=== PATIENT | male | born 1960 | race Caucasian/White ===

== ENCOUNTER 2019-09-19 14:16 | Emergency (ER) | payer OTHER, SELFPAY ==
--- NOTE | ~2019-09-19 | XR_ITS ---
EXAMINATION: XR chest 2V DATE: 09/19/2019 15:16 INDICATION: Mid chest pain. TECHNIQUE: Frontal and lateral views of the chest were obtained. COMPARISON: Chest 2 views 12/09/2006 FINDINGS: The chest demonstrates clear lungs without pneumonia, pleural effusion, or pneumothorax. Th e heart size is normal. IMPRESSION: 1. No acute cardiopulmonary disease. Reviewed, dictated and finalized at location A.
--- NOTE | 2019-09-19 14:38 | ECG_ITS ---
Measurements Intervals [place] Rate: 70 P: 61 FL: 180 QRS: 1 QRSD: 105 T: 48 QT: 360 QTc: 389 Interpretive Statements SINUS RHYTHM INCOMPLETE RIGHT BUNDLE BRANCH BLOCK DELAYED PRECORDIAL R/S TRANSITION BASELINE ARTIFACT- I, II, III BORDERLINE ECG Electronically Signed On 09-19-2019 15:44:56 CDT by Junaid Jesus D.O.
[2019-09-19 14:42] VITALS: BP 142/102; PULSE 68; PULSE 71; RESP 19; TEMP 36.9; O2SAT 97
[2019-09-19 15:17] LABS: Basophils Percent Auto 0.7 % (0.2-1.2); Eosinophils Absolute Auto 0.1 K/mm3 (0-0.3); Eosinophils Percent Auto 1.2 % (0-4.4); Hematocrit 44.4 % (42.0-52.0); Hemoglobin 15.1 g/dL (14.0-18.0); Immature Granulocyte Absolute 0.01 K/mm3 (0.00-0.031); Immature Granulocyte Percent A 0.2 % (0-0.5); Lymphocytes Absolute Auto 1.83 K/mm3 (0.9-3.2); Lymphocytes Percent Auto 31.7 % (18.3-44.2); Mean Corpuscular Hemoglobin 29.4 pg (26-34); Mean Corpuscular Volume 86.4 fl (80-100); Mean Platelet Volume 8.9 fl (7.4-10.4); Monocytes Absolute Auto 0.5 K/mm3 (0.1-0.6); Monocytes Percent Auto 8.3 % (2.6-8.5); Neutrophils Absolute Auto 3.3 K/mm3 (1.3-6.7); Neutrophils Percent Auto 57.9 % (45.5-73.1); Platelet Count Result 236 k/mm3 (150-375); Red Blood Count 5.14 M/mm3 (4.6-6.20); Red Cell Distribution Width 13.4 % (11.5-14.5); White Blood Count 5.8 K/mm3 (4.5-10.0)
[2019-09-19] MEDS: ASPIRIN 81 MG CHEWABLE TABLET 324 MG PO (15:21)
[2019-09-19 15:28] LABS: Blood Urea Nitrogen 15 mg/dL (9-20); Carbon Dioxide 25 mmol/L (22-30); Chloride 106 mmol/L (98-107); Estimated CRCL calculation 77 ml/min; Estimated Glomerular Filt Rate > 60; Glucose 89 mg/dL (75-110); Potassium 3.9 mmol/L (3.4-5.0); Sodium 138 mmol/L (137-145)
[2019-09-19 15:40] LABS: Troponin I < 0.012 ng/mL (0.000-0.034)
[2019-09-19 16:03] LABS: Prothrombin Time 13.2 Seconds (11.1-14.7)
[2019-09-19 16:04] LABS: Partial Thromboplastin Time 34.4 SECONDS (22.3-36.8)
--- NOTE | 2019-09-19 16:20 | ED.GENADULT ---
HPI - General Adult General Chief complaint: Chest Pain Stated complaint: chest pain Time Seen by Provider: 09/19/19 15:32 Source: patient History of Present Illness HPI narrative: Patient is a 59 y/o male complaining midsternal chest pain since yesterday. He states that he was exercising with a bicycle yesterday and developed a sharp, midsternal chest pain afterwards. He rates his pain as 6/10, but it only lasted a few seconds. Today, he has some pressure and burning sensation in his midsternal area. There is no radiation. He has some dizziness and nausea, but vomiting or sweating. He has been feeling heart palpitation for several months. Related Data Allergies Allergy/AdvReac Type Severity Reaction Status Date / Time cat dander Allergy Unknown Sneezing Verified 07/08/19 11:13 house dust Allergy Unknown Sneezing Verified 07/08/19 11:13 pollen extracts Allergy Unknown Sneezing Verified 07/08/19 11:13 potassium chloride Allergy Unknown Sneezing Verified 07/08/19 11:13 Review of Systems Constitutional: Constitutional: Denies chills, Denies fever(s), Denies headache(s) and Denies weakness Eyes: Eyes: Denies blurry vision ENT: Denies headache(s) and Denies neck pain Cardiovascular: Cardiovascular: Reports chest pain and Denies dyspnea Comments: +palpitation Respiratory: Respiratory: Denies cough and Denies dyspnea Gastrointestinal: Gastrointestinal: Denies abdominal pain, Denies diarrhea, Reports nausea and Denies vomiting Genitourinary: Genitourinary: Denies hematuria and Denies dysuria Musculoskeletal: Musculoskeletal: Denies back pain and Denies neck pain Neurologic: Denies headache(s) and Denies weakness [facility] Past Medical History Medical History Bone spur (~2007) Torn meniscus (~2009) Family History Family History Mother Cerebrovascular accident Carcinoma of colon Family history of lupus erythematosus Patient's mother is , Onset Age: 72 Social History Social History Smoking status: Never smoker Alcohol intake: current Gender identity (if verbalized by the patient): Male Exam Const: General: no acute distress and well developed Orientation/consciousness: oriented to person, oriented to place, oriented to time and patient oriented x3 HENMT: Head: normocephalic Ears: external ears normal General nose exam: Normal external nose present Eyes: General: appearance normal, both eyes and all related structures Conjunctivae: conjunctivae normal Neck: Neck: normal visual inspection and full ROM Chest: Chest palpation & inspection: normal inspection of the chest and no tenderness Resp: Effort & Inspection: normal respiratory effort Auscultation: clear to auscultation bilaterally Cardio: Rate: regular rate Rhythm: regular rhythm GI: GI Palp: No abdominal tenderness and Yes Soft to palpation Skin: General skin exam: normal color and turgor normal Neuro: General: oriented to person, oriented to place, oriented to time and patient oriented x3 Cognition (Neuro): normal cognition Extrem: General: normal to inspection, full ROM and no pedal edema Psych: Appearance: grossly normal Mental Status: mental status grossly normal Affect: normal affect Course Vital Signs Vital signs: Vital Signs Temperature 36.9 C 09/19/19 14:42 Pulse Rate 68 09/19/19 14:42 Respiratory Rate 19 09/19/19 14:42 Blood Pressure 142/102 H 09/19/19 14:42 Pulse Oximetry 97 09/19/19 14:42 Temperature 36.4 C 09/19/19 20:39 Pulse Rate 77 09/19/19 20:39 Respiratory Rate 20 09/19/19 20:39 Blood Pressure 130/80 09/19/19 20:39 Pulse Oximetry 98 09/19/19 20:39 Medical Decision Making Vital Signs Vital Signs: Vital Signs Temperature 36.9 C 09/19/19 14:42 Pulse Rate 68 09/19/19 14:42 Respiratory Rate 19 0
[2019-09-19 16:42] VITALS: BP 131/94; PULSE 64; RESP 17; O2SAT 98
[2019-09-19 17:42] VITALS: BP 122/81; PULSE 64; RESP 15; O2SAT 99
[2019-09-19 18:14] LABS: Troponin I < 0.012 ng/mL (0.000-0.034)
--- NOTE | 2019-09-19 19:19 | PC.NURSE ---
assumed care of pt from Jareth Yun.
[2019-09-19 19:20] LABS: D Dimer 0.27 ug/mL (<0.48)
[2019-09-19 20:39] VITALS: BP 130/80; PULSE 77; RESP 20; TEMP 36.4; O2SAT 98
== END 2019-09-19 20:41 | disposition home or self-care (01) ==
PROVIDERS: Emergency Medicine; Emergency Provider Emergency Medicine; PCP Family Medicine
DX: R07.9 Chest pain, unspecified (principal)
CPT/HCPCS: 36415; 71046; 80048; 84443; 84484; 85025; 85380; 85610; 85730; 93005; 99284; A9270

== ENCOUNTER 2021-03-22 11:04 | Outpatient (CLI) | payer OTHER, SELFPAY ==
--- NOTE | 2021-03-28 12:21 | WPDHOLTEREM ---
Holter/Event Monitor Holter/Event Monitor Date of procedure: 03/22/21 Holter/Event Procedure: 24 Hr Holter Monitor Indications: Palpitations Conclusion: 1. 24 hour holter monitor on 03/22/21. 2. Underlying rhythm is sinus rhythm. HR range 51-122 bpm; average HR 74 bpm. 3. There are 16 premature supraventricular complexes and 1 atrial triplet. No supraventricular tachycardia. 4. There are 39 premature ventricular complexes. No ventricular tachycardia. 5. No sinoatrial or atrioventricular blocks. No significant pauses greater than 2 seconds. 6. Patient reports symptoms of flutter which demonstrate sinus rhythm, HR range 63-77 bpm.
== END 2021-03-22 11:05 | disposition home or self-care (01) ==
PROVIDERS: PCP Family Medicine; Visit Provider Physician Assistant
DX: R00.2 Palpitations (principal)
CPT/HCPCS: 93225; 93226

== ENCOUNTER → 2022-04-11 10:15 | Outpatient (CLI) | payer BC, SELFPAY ==
--- NOTE | ~2022-04-11 | US_ITS ---
Testicular ultrasound with doppler. Indication: Right testicular pain. Technique: Real-time sonography the scrotum was performed. Color flow Doppler and Doppler spectral an alysis were performed. Findings: The testes are homogeneous in echotexture bilaterally. There is no evidence of an intrates ticular mass. The right testis measures 4.8 x 2.5 x 3.7 cm and the left 4.6 x 2.4 x 3.7 cm. There is color-flow seen to both testes. Arterial and venous spectral waveforms are seen in both testes. There is no sonographic evidence of torsion. The head of the epididymis is visualized bilaterally and is within normal limits. Small bilateral hydroceles noted. Impression: Small bilateral hydroceles. No other significant abnormality. Reviewed, dictated and finalized at [facility]. ASSISTANT Impression: Small bilateral hydroceles. No other significant abnormality.
== END ==
PROVIDERS: PCP Family Medicine; Visit Provider Family Medicine
DX: N50.811 Right testicular pain (principal); N43.3 Hydrocele, unspecified
CPT/HCPCS: 76870; 93976

== ENCOUNTER 2022-05-23 01:23 | Day surgery (SDC) | payer BC, SELFPAY ==
[2022-05-16 11:03] VITALS: BMI 25.7
[2022-05-23 11:59] VITALS: BP 137/85; PULSE 88; RESP 20; TEMP 36.6; O2SAT 98
--- NOTE | 2022-05-23 12:07 | PM.HPGS ---
History of Present Illness History of Present Illness Consent: Risks, benefits, and alternatives have been discussed and questions answered. Patient agrees to proceed with procedure. Chief complaint: family hx of colon ca Narrative: Amador Stauffer is a 61 year old male Presents for screening colonoscopy. Patient's current weight appetite and bowel movements are normal. Patient denies abdominal pain. He has had no bleeding. Family history is significant that his mother had colon cancer. Patient presents today for screening exam. Last exam was 5 years ago. Review of Systems Review of Systems: Review of systems noncontributory. [facility] Past Medical History Medical History (Updated 05/23/22 @ 12:09 by Matthew Copeland MD) Bone spur (~2007) Torn meniscus (~2009) Family History Family History Mother Cerebrovascular accident Carcinoma of colon Family history of lupus erythematosus Patient's mother is , Onset Age: 72 Social History Social History Smoking status: Never smoker Alcohol intake: current Drinks per week: 3 Alcohol use details: socially Substance use: never Substance use type: does not use Lack of Transportation: No Lack of Food: Never True Current Housing: I Have Housing Concerned About Future Housing: No Difficulty Paying Gas/Electric Bills: No Difficulty Paying for Meds: No Currently Unemployed: No Education: Decline to Answer Difficulty w/ Childcare or Family Care: No Living arrangements: with family Additional living arrangements comments: Occupation/Education: occupation Gender identity (if verbalized by the patient): Male Sexual Orientation (if Verbalized by the Patient): Straight or Heterosexual Spiritual care concerns: No Agree to blood products: Yes Meds Home Medications and Allergies Home Medications Medication Instructions Recorded Confirmed Type sodium,potassium,mag sulfates 17.5 See Rx Instructions PO .COMPLEX 01/08/22 05/23/22 Rx gram-3.13 gram-1.6 gram oral soln #354 mL (Suprep Bowel Prep Kit) sildenafil 50 mg tablet (Viagra) 50 mg PO DAILY PRN sexual activity 02/26/22 05/23/22 History cholecalciferol (vitamin D3) 10 10 mcg PO DAILY 05/16/22 05/23/22 History mcg (400 unit) capsule (Vitamin D3) multivitamin 1 tablet PO DAILY 05/16/22 05/23/22 History omega-3 fatty acids 1,000 mg PO DAILY 05/16/22 05/23/22 History Allergies Allergy/AdvReac Type Severity Reaction Status Date / Time cat dander Allergy Unknown Sneezing Verified 05/23/22 12:02 house dust Allergy Unknown Sneezing Verified 05/23/22 12:02 pollen extracts Allergy Unknown Sneezing Verified 05/23/22 12:02 Vital Signs Vital Signs - 24 hr 05/23/22 11:59 Temperature 97.8 F Pulse Rate 88 Respiratory Rate 20 Blood Pressure 137/85 Pulse Oximetry 98 Oxygen Delivery Room Air Exam Narrative: Physical exam reveals patient to be alert. Vital signs stable. HEENT exam is unremarkable. Patient is anicteric. Lungs are clear to auscultation and percussion. Heart is without murmur or extra sounds. Abdomen bowel sounds present soft nontender with no organomegaly. Digital external rectal exam is normal. Assessment and Plan Assessment and plan (1) Family history of colon cancer in mother: Code(s): Z80.0 - Family history of malignant neoplasm of digestive organs Status: Acute Assessment and Plan: Patient's mother has had colon cancer. Plan for surveillance colonoscopy now and consider this at 5 year intervals in the future.
[2022-05-23] MEDS: LACTATED RINGERS 1,000 ML 150 ML IV CONT (12:13)
--- NOTE | 2022-05-23 12:25 | WPDANESEPPF ---
Anes - Initial Pre Proc Eval Procedure: Operation Date: 05/23/22 15:00 Proposed Procedures p Screening Colonoscopy - Matthew Copeland MD Date/Time: 05/23/22 12:25 Surgeon: Matthew Copeland MD Pre Op Diagnosis: family hx of colon ca Patient Data Age: 61 Gender: M Height: 1.85 m Weight: 90 kg Last Vital Signs Temp 36.6 C 05/23/22 11:59 Pulse 88 05/23/22 11:59 Resp 20 05/23/22 11:59 BP 137/85 05/23/22 11:59 Pulse Ox 98 05/23/22 11:59 O2 Del Method Room Air 05/23/22 11:59 Allergies Allergy/AdvReac Type Severity Reaction Status Date / Time cat dander Allergy Unknown Sneezing Verified 05/23/22 12:02 house dust Allergy Unknown Sneezing Verified 05/23/22 12:02 pollen extracts Allergy Unknown Sneezing Verified 05/23/22 12:02 Home Medications Medication Instructions Recorded Confirmed Type sodium,potassium,mag sulfates 17.5 See Rx Instructions PO .COMPLEX 01/08/22 05/23/22 Rx gram-3.13 gram-1.6 gram oral soln #354 mL (Suprep Bowel Prep Kit) sildenafil 50 mg tablet (Viagra) 50 mg PO DAILY PRN sexual activity 02/26/22 05/23/22 History cholecalciferol (vitamin D3) 10 10 mcg PO DAILY 05/16/22 05/23/22 History mcg (400 unit) capsule (Vitamin D3) multivitamin 1 tablet PO DAILY 05/16/22 05/23/22 History omega-3 fatty acids 1,000 mg PO DAILY 05/16/22 05/23/22 History Patient hx anesthesia problems: none Family hx anesthesia problems: none Results Review: All pre-operative results and documents have been reviewed as part of the pre-operative evaluation. [facility] Past Medical History Medical History Bone spur (~2007) Torn meniscus (~2009) Surgical History Surgical History (Updated 05/23/22 @ 12:25 by Patricio Hickman MD) H/O sinus surgery Family History Family History Mother Cerebrovascular accident Carcinoma of colon Family history of lupus erythematosus Patient's mother is , Onset Age: 72 Social History Social History Smoking status: Never smoker Alcohol intake: current Drinks per week: 3 Alcohol use details: socially Substance use: never Substance use type: does not use Lack of Transportation: No Lack of Food: Never True Current Housing: I Have Housing Concerned About Future Housing: No Difficulty Paying Gas/Electric Bills: No Difficulty Paying for Meds: No Currently Unemployed: No Education: Decline to Answer Difficulty w/ Childcare or Family Care: No Living arrangements: with family Additional living arrangements comments: Occupation/Education: occupation Gender identity (if verbalized by the patient): Male Sexual Orientation (if Verbalized by the Patient): Straight or Heterosexual Spiritual care concerns: No Agree to blood products: Yes Anes - Eval Final PreProcedure Day of Procedure 05/23/22 12:25 Patient weight: overweight Heart: regular rate and rhythm Lungs: clear to auscultation Airway: Mallampati scale class II Neurological: alert and oriented Last oral intake: >/= 8 hours ASA classification: II Emergent: no Anesthetic plan: proceed Anesthesia type and monitoring: general GIVS and standard monitoring Results Review: All pre-operative results and documents have been reviewed as part of the pre-operative evaluation. Informed Consent: The patient's anesthetic plan and its attendant risks and benefits were discussed with the patient/family/POA. Questions were solicited and answers provided to the satisfaction of the patient/family/POA.
[2022-05-23] MEDS: SIMETHICONE ORAL SUSPENSION 20 MG/0.3 ML 30 ML BOTTLE 0.6 ML IRRIGATION (12:47)
[2022-05-23 13:03] VITALS: BP 117/78; PULSE 80; RESP 19; TEMP 36.6; O2SAT 98
[2022-05-23 13:13] VITALS: BP 123/80; PULSE 75; RESP 17; TEMP 36.6; O2SAT 100
[2022-05-23 13:23] VITALS: BP 136/93; PULSE 78; RESP 18; TEMP 36.6; O2SAT 100
== END 2022-05-23 13:28 | disposition home or self-care (01) ==
PROVIDERS: PCP Family Medicine; Visit Provider Internal Medicine Gastroenterology
PROC: 0DJD8ZZ Inspection of Lower Intestinal Tract, Via Natural or Artificial Opening Endoscopic (ICD-10-PCS; CPT 45378; principal; 2022-05-23 15:00)
DX: Z12.11 Encounter for screening for malignant neoplasm of colon (principal); K64.8 Other hemorrhoids; Z80.0 Family history of malignant neoplasm of digestive organs
CPT/HCPCS: 45378; J2704; J7120

== ENCOUNTER 2024-06-17 09:42 | Emergency (ER) | payer OTHER, SELFPAY ==
[2024-06-17] VITALS (13 sets, daily range): BP systolic 125–150; BP diastolic 82–99; PULSE 62–78; RESP 12–20; TEMP 36.3–37.1; O2SAT 97–100
--- NOTE | ~2024-06-17 | XR_ITS ---
EXAMINATION: XR chest 2V DATE: 06/17/2024 10:22 INDICATION: Weakness TECHNIQUE: PA and lateral views of the chest were obtained. COMPARISON: Chest radiograph dated 09/19/2019 FINDINGS: Mild linear discoid atelectasis at the bilateral lung bases. No other airspace opacities, pulmonary e kaylan, pleural effusion or pneumothorax. The cardiomediastinal silhouette is normal. Visualized bones and soft tissues are unremarkable. IMPRESSION: 1. Mild discoid atelectasis at the bilateral lung bases. Reviewed, dictated and finalized at location B.
--- NOTE | 2024-06-17 09:52 | ECG_ITS ---
Test Date: 2024-06-17 09:58:03 Measurements Intervals [place] Rate: 68 P: 69 [place]: 189 QRS: 7 QRSD: 101 T: 56 QT: 377 QTc: 402 Interpretive Statements SINUS RHYTHM INCOMPLETE RIGHT BUNDLE BRANCH BLOCK BORDERLINE ECG No previous ECG available for comparison Electronically Signed On 06-17-2024 10:35:12 CDT by Junaid Jesus D.O.
--- OUTSIDE RECORDS SUMMARY | 2024-06-17 10:06 | XMS_ITS | Continuity of Care Document ---
Author Organization [facility] Address [address] [facility] [address] [facility] [address] [place] [address] Phone Care Team Providers Care Mba Internship Name Role Phone Galen Horvath MD Unavailable Unavailable Procedures Procedure Date Post-op Follow-up Visit Visual Field Examination(s) Advance Directives Directive Yes / No Effective Date File Name No Information Encounters Encounter Description Practice Location Reason(s) For Visit Diagnoses Date Provider Providers Copied on Encounter [facility], [address] [place] [address] [facility] [address], [place], [place], [id number], tel:[phone] [facility] No Information [address] Alexandru Aaron. [facility] [place], [place], [id number], [place]. tel:[phone] [facility], [address] [place] [address] [address], [place], [place], [id number], tel:[phone] [facility] No Information [address]. [address] [place], [place] [address]ate [facility] [address], [place], [address], [place]. tel:[phone] Referring Provider: Lyly Estrella, [address] [place], [address]. tel:[phone] Family History Family Member Type Diagnosis Age At Onset No Information Payers Payer name Insurance type Covered republican ID Authoriza tion(s) No Information Social History Type Description Quantity Date Captured Comments Sex Male Smoking Status No Information Chief Complaint And Reason For Visit No Information Reason For Referral Reason For Referral No Information History Of Present Illness Encounter Date Complaint History Of Prese nt Illness No Information Functional Status Date Functional Assessmen t No Information Instructions Date Instruction Additional Infor mation No Information Assessments Type Assessment Date No Information Patient Care Teams Name Effective Dates (start - stop) Status Members No Information
--- OUTSIDE RECORDS SUMMARY | 2024-06-17 10:06 | XMS_ITS | Encounter Summary ---
Author Organization [facility] Address [address] [facility] [place] [address] Care Team Providers Care Anesthesiologist Physician Name Role Phone Kait Owusu MD Primary Care Provider [phone] Encounter Details Date Type Department Care Team (Late st Contact Info) Description 02/15/2019 Lab Requisition [facility] DermPath Lab [address] [facility] [place] [id number] Rina Elizondo MD [address] [facility] [address] DEPT OF DERMATOLOGY [place], [place] [id number] Social History Tobacco Use Types Packs/Day Years Used Date Smoking Tobacco: Never Assessed Sex and Gender Information Value Date Recorded Sex Assigned at Not on file Gender Identity Not on file Sexual Orientation Not on file documented as of this encounter Plan of Treatment Not on file documented as of this encounter Procedures Procedure Name Priority Date/Time Associated Diagnosis Comments DERMPATH SLIDE CONSULT Routine 02/15/2019 12:00 AM HYPOID GEAR GENERATOR documented in this encounter Results * DERMPATH SLIDE CONSULT (02/15/2019 12:00 AM HYPOID GEAR GENERATOR) Case Report Dermatopathology Report Case: [id number] Authorizing Provider: Rina Elizondo MD Collected: 02/15/2019 12:00 AM Ordering Location: [facility] DermPath Lab Received: 02/15/2019 08:04 AM Pathologist: Talia Medellin MD Specimen: Slide(s), Left upper abdomen, [id number]# [id number] 6:07 PM [facility] DERMATOPATHOLOGY [facility]ORAT[facility] Final Diagnosis Specimen A. 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 Compound melanocytic proliferation. All slides returned. Appointment. Date: 02/21/2019. Any additional sections, special stains or immunohistochemical stains performed by our laboratory will be kept here on file. 6:07 PM [facility] Microscopic Description Specimen A. Slide(s), Left upper abdomen, OSC# [id number]: This is a compound nevus. There is architectural disorder characterized by a lentiginous proliferation of melanocytes between irregular nevus nests of cells along the dermal-epidermal junction. There is underlying lamellar fibroplasia of the papillary dermis. The intradermal component is bland in appearance and matures with depth. Provided immunostains are reviewed. The melanocytes are highlighted by Melan-A with red and brown chromogens. HMB-45 shows absence of staining in intradermal melanocytes, and Mib-1 fails to highlight proliferating melanocytes in the dermis. p16 shows a mosaic pattern of staining in the lesional melanocytes. (Compound Gilson's Nevus or Compound Dysplastic Nevus) This lesion is not present at the sampled margin of the specimen. There is a perifollicular lymphohistiocytic infiltrate. 6:07 PM [facility] Disclaimer An external and internal positive and negative controls are appropriate for the histochemical, immunohistochemical and immunofluorescence stain(s) in this case (if any), except where stated explicitly. The performance characteristics of the stain(s) cited in this report were developed and its performance characteristic determined by the Dermatopathology Laboratory at [facility], directed by Dr. Guilherme Medellin. These tests need not be, and therefore are not, approved by the [place] Food and Drug Administration. The tests are used for clinical purposes. Billing Codes Specimen Charges Stain Charges 04379 1 9 6:07 PM [facility]PO[facility]ATOR DERMATOPATHOLOGY LABORATORY Embedded Images 9 6:07 PM HYPOID GEAR GENERATOR DERMATOPATHOLOGY LABORATORY Pathology/Cytolog y SLIDE / Unknown 02/15/2019 02/15/2019 8:04 AM HYPOID GEAR GENERATOR Rina Elizondo MD LAB - PATHOLOGY/CYTO LOGY ORDERABLES DERMATOPATHOLOGY LABORATORY [facility] - Department of Dermatology [address] [place] [address] 5th Floor Lab [address] [phone] documented in this encounter Visit Diagnoses Not on filedocumented in this encounter Care Teams Anesthesiologist Physician Relationship Specialty Start Date End Date Kait Owusu MD [address] [place] [id number] PCP - General 01/26/19 documented as of this encounter
--- OUTSIDE RECORDS SUMMARY | 2024-06-17 10:06 | XMS_ITS | Clinical Summary ---
Author Organization [facility] Address [address] [facility] [place] [address] Care Team Providers Care Termite Exterminator Helper Name Role Phone Kait Owusu MD Primary Care Provider [phone] Source Comments [facility],non-owned Affiliates and Associated Physician Practices is amultiple site organization consisting of ambulatory clinics and hospital sitesin [place], [place], [place] and [place]. This disclosure is being madepursuant to the Care Everywhere program and may not contain all information available regarding this patient. Last updated 17.[facility] Allergies No known active allergies Medications Be aware that medications may not be up to date on this document. Always verify current medications with the patient. No known medications Active Problems No known active problems Immunizations Name Administration Dates Next Due INFLUENZA VACCINE, QUADR. (F LUZONE; FLULAVAL; FLUARIX; AFLURIA QUADRIVALENT; 6MO+), 0.5 ML (IIV4) 01/11/2017 Family History Medical History Relation Name Comments Asthma Neg Hx CVA Neg Hx Cancer - Breast Neg Hx Cancer - Other Neg Hx Cancer - Skin, Melanoma Neg Hx Cancer - Skin, Non Melanoma Neg Hx Eczema Neg Hx Hemophilia Neg Hx Psoriasis Neg Hx Social History Tobacco Use Types Packs/Day Years Used Date Smoking Tobacco: Never Smokeless Tobacco: Never Alcohol Use Standard Drinks/Week Comments Yes 0 (1 standard drink = 0.6 oz pur e alcohol) Sex and Gender Information Value Date Recorded Sex Assigned at Not on file Gender Identity Not on file Sexual Orientation Not on file Last Filed Vital Signs Vital Sign Reading Time Taken Comments Blood Pressure 127/88 03/14/2019 2:03 PM NATURAL GAS SHOTHOLE DRILLER Pulse 70 03/14/2019 2:03 PM NATURAL G[employer] SHOTHOLE DRILLER Temperature 37 C (98.6 F) 03/11/2019 4:45 PM NATURAL GAS SHOTHOLE DRILLER Respiratory Rate 16 03/11/2019 4:45 PM NATURAL GAS SHOTHOLE DRILLER Oxygen Saturation 95% 03/14/2019 2:03 PM NAT[employer] G[employer] SHOTHOLE DRILLER Inhaled Oxygen Concentration - - Weight 93 kg (205 lb) 03/14/2019 12:53 PM NAT[employer] G[employer] SHOTHOLE DRILLER Height 185.4 cm (6' 1 ) 03/14/2019 12:53 PM NATURAL G[employer] SHOTHOLE DRILLER Body Mass Index 27.05 03/14/2019 12:53 PM NATURAL GAS SHOTHOLE DRILLER Plan of Treatment Health Maintenance Due Date Last Done Comments COLOGUARD (AGES 45-75) - COL ON CA SCREENING 1958 COLON MONITORING 1958 COLONOSCOPY - COLON CA SCREENING 1958 CT COLONOGRAPHY - COLON CA SCREENING 1958 Colorectal Cancer Screening 1958 FIT - COLON CA SCREENING 1958 FLEX SIG - COLON CA SCREENING 1958 LIPID TESTING 1958 HIV SCREENING 1973 HEPATITIS C SCREENING 06/03/1976 DTAP/TDAP/TD VACCINES (1 - Tdap) 1977 PNEUMOCOCCAL VACCINE 50+ (1 of 1 - PCV) 2008 ZOSTER VACCINE (1 of 2) 2008 SCREENING FOR DIABETES 03/11/2019 COVID-19 VACCINE ( - 2023-2 5 season) 2023 DEPRESSION SCREENING 03/09/2024 INFLUENZA VACCINE (Season Ended) 2024 12/04/2017, 01/11/2017 Respiratory Syncytial Virus (RSV) Vaccine Pt: or over 60 yrs (1 - 1-dose 75+ series) 2033 HEPATITIS B VACCINE Aged Out No longe r eligible based on patient's age to complete this topic HIB VACCINE Aged Out No longer eligi ble based on patient's age to complete this topic HPV VACCINE Aged Out No longer eligi ble based on patient's age to complete this topic MENINGOCOCCAL (Group B) VACCINE SHARED DECISION-MAKING Aged Out No longer eligible based on patient's age to complete this topic MENINGOCOCCAL GROUPS A/C/Y/W VACCINE Aged Out No longer eligible b ased on patient's age to complete this topic Care Teams Termite Exterminator Helper Relationship Specialty Start Date End Date Kait Owusu MD [address] [place] [address] [id number] PCP - General 01/26/19
[2024-06-17 10:16] LABS: Basophils Percent Auto 0.5 % (0.2-1.2); Eosinophils Absolute Auto 0.1 K/mm3 (0-0.3); Eosinophils Percent Auto 1.8 % (0-4.4); Hematocrit 43.1 % (42.0-52.0); Immature Granulocyte Absolute 0.01 K/mm3 (0.00-0.031); Immature Granulocyte Percent A 0.2 % (0-0.5); Lymphocytes Absolute Auto 1.34 K/mm3 (0.9-3.2); Lymphocytes Percent Auto 24.4 % (18.3-44.2); Mean Corpuscular HGB Conc 32.5 g/dl (32-36); Mean Corpuscular Volume 89.4 fl (80-100); Mean Platelet Volume 8.5 fl (7.4-10.4); Monocytes Absolute Auto 0.4 K/mm3 (0.1-0.6); Neutrophils Absolute Auto 3.6 K/mm3 (1.3-6.7); Neutrophils Percent Auto 65.1 % (45.5-73.1); Platelet Count Result 254 k/mm3 (150-375); Red Blood Count 4.82 M/mm3 (4.6-6.20); Red Cell Distribution Width 14.4 % (11.5-14.5); White Blood Count 5.5 K/mm3 (4.5-10.0)
[2024-06-17 10:22] LABS: Add Urine Microscopic? NO; Appearance Urine Clear (Clear); Bilirubin Urine Negative (Negative); Blood Urine Negative (Negative); Color Urine Yellow (Yellow); Glucose Urine UA Negative (Negative); Ketones Urine Negative (Negative); Leukocyte Esterase Ur Negative LEU/UL (Negative); Nitrate Urine Negative (Negative); Protein Urine Negative (Negative); Specific Grav Ur 1.019 (1.001-1.035); Urobilinogen Urine 0.2 mg/dL (<2.0)
[2024-06-17 10:30] LABS: Alanine Aminotransferase 19 U/L (6-50); Albumin Level 4.2 g/dL (3.5-5.1); Alkaline Phosphatase 55 U/L (38-126); Anion Gap 7 mmol/L (4-12); Aspartate Amino Transferase 25 U/L (17-59); Bilirubin,Total 0.7 mg/dL (0.2-1.3); Blood Urea Nitrogen 16 mg/dL (9-20); Calcium 8.6 mg/dL (8.4-10.2); Carbon Dioxide 27 mmol/L (22-30); Chloride 107 mmol/L (98-107); Estimated CRCL calculation 74 ml/min; Estimated Glomerular Filt Rate > 60; Glucose 102 mg/dL (65-110); Sodium 141 mmol/L (137-145)
[2024-06-17 10:42] LABS: Troponin I < 0.012 ng/mL (0.000-0.034)
--- OUTSIDE RECORDS SUMMARY | 2024-06-17 10:50 | XMS_ITS | Continuity of Care Document ---
Author Organization [facility] Address [address] [facility] utive [facility] [address] [place] [address] Phone Care Team Providers Care Director Social Welfare Name Role Phone Galen Horvath MD Unavailable Unavailable Procedures Procedure Date Post-op Follow-up Visit Visual Field Examination(s) Advance Directives Directive Yes / No Effective Date File Name No Information Encounters Encounter Description Practice Location Reason(s) For Visit Diagnoses Date Provider Providers Copied on Encounter [facility], [address] [place] [address] [facility], [place], [place], [id number], tel:[phone] [facility] No Information 201 0 Alexandru Aaron. Critical access hospital0 [place], [place], [id number], [place]. tel:[phone] [facility], [address] [place] [address] [address], [place], [place], [address], tel:[phone] [facility] No Information 200 [address] Cortney [address]quist[address]il. [address] [place], [place] [address]ate [facility] [address], [place], [address], [place]. tel:[phone] Referring Provider: Lyly Estrella, [address] [place], [address]. tel:[phone] Family History Family Member Type Diagnosis Age At Onset No Information Payers Payer name Insurance type Covered constitution party ID Authoriza tion(s) No Information Social History [...]
--- OUTSIDE RECORDS SUMMARY | 2024-06-17 10:50 | XMS_ITS | Encounter Summary ---
Author Organization [facility] Address [address] [facility] [place] [address] Care Team Providers Care Card Sorter Name Role Phone Kait Owusu MD Primary Care Provider [phone] Encounter Details Date Type Department Care Team (Late st Contact Info) Description 02/15/2019 Lab Requisition [facility] DermPath Lab [address] [facility], [place] [id number] Rina Elizondo MD [address] [facility] 3 DEPT OF DERMATOLOGY [place], [place] [id number] Social History Tobacco Use Types Packs/Day Years [...] DERMPATH SLIDE CONSULT Routine 02/15/2019 12:00 AM OFFAL SEPARATOR documented in this encounter Results * DERMPATH SLIDE CONSULT (02/15/2019 12:00 AM OFFAL SEPARATOR) Case Report Dermatopathology Report Case: [id number] Authorizing Provider: Rina Elizondo MD Collected: 02/15/2019 12:00 AM Ordering Location: [facility] DermPath Lab Received: 02/15/2019 08:04 AM Pathologist: Talia Medellin MD Specimen: Slide(s), Left upper abdomen, [id number]# [id number] 6:07 PM [facility] DERMATOPATHOLOGY LABORATORY Final Diagnosis Specimen A. 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 Compound melanocytic proliferation. All slides returned. Appointment. Date: 02/21/2019. Any additional sections, special stains or immunohistochemical stains performed by our laboratory will be kept here on file. 6:07 PM [facility] DERMATOPATHOLOGY LABORATORY Microscopic Description Specimen A. Slide(s), Left upper abdomen, OSC# [id number]: This is a compound nevus. There is [...] is a perifollicular lymphohistiocytic infiltrate. 6:07 PM [facility] DERMATOPATHOLOGY LABORATORY Disclaimer An external and internal positive and negative controls are appropriate for the histochemical, immunohistochemical and immunofluorescence stain(s) in this case (if any), except where stated explicitly. The performance characteristics of the stain(s) cited in this report were developed and its performance characteristic determined by the Dermatopathology Laboratory at [facility], directed by Dr. Guilherme Medellin. These tests need not be, and therefore are not, approved by the [place] Food and Drug Administration. The tests are used for clinical purposes. Billing Codes Specimen Charges Stain Charges 50894 1 9 6:07 PM OFFAL SEPARATOR DERMATOPATHOLOGY LABORATORY Embedded Images 9 6:07 PM OFFAL SEPARATOR DERMATOPATHOLOGY LABORATORY Pathology/Cytolog y SLIDE / Unknown 02/15/2019 02/15/2019 8:04 AM OFFAL SEPARATOR Rina Elizondo MD LAB - PATHOLOGY/CYTO LOGY ORDERABLES DERMATOPATHOLOGY LABORATORY [facility] - Department of Dermatology [address] [place] [address] 5th Floor Lab [address] [phone] documented in this encounter Visit Diagnoses Not on filedocumented in this encounter Care Teams Card Sorter Relationship Specialty Start Date End Date Kait Owusu MD [address] [place] [address] PCP - General 01/26/19 documented as of this encounter
--- OUTSIDE RECORDS SUMMARY | 2024-06-17 10:50 | XMS_ITS | Clinical Summary ---
Author Organization [facility] Address [address] [facility] [place] [address] Care Team Providers Care Acquisition Marketing Manager Name Role Phone Kait Owusu MD Primary Care Provider Source Comments [facility],non-owned Affiliates and Associated Physician Practices is amultiple site organization consisting of ambulatory clinics and hospital sitesin [place], [place], [place] and [place]. This disclosure is being madepursuant to the Care Everywhere program and may not contain all information available regarding this patient. Last updated 17.[facility] Allergies No known active allergies Medications Be [...] Comments Blood Pressure 127/88 03/14/2019 2:03 PM OFFBEARER SEWER PIPE Pulse 70 03/14/2019 2:03 PM OFFBEARER SEWER PIPE Temperature 37 C (98.6 F) 03/11/2019 4:45 PM OFFBEARER SEWER PIPE Respiratory Rate 16 03/11/2019 4:45 PM OFFBEARER SEWER PIPE Oxygen Saturation 95% 03/14/2019 2:03 PM OFFBEARER SEWER PIPE Inhaled Oxygen Concentration - - Weight 93 kg (205 lb) 03/14/2019 12:53 PM OFFBEARER SEWER PIPE Height 185.4 cm (6' 1 ) 03/14/2019 12:53 PM OFFBEARER SEWER PIPE Body Mass Index 27.05 03/14/2019 12:53 PM OFFBEARER SEWER PIPE Plan of Treatment Health Maintenance Due Date [...] age to complete this topic Care Teams Acquisition Marketing Manager Relationship Specialty Start Date End Date Kait Owusu MD [address] [place] [id number] PCP - General 01/26/19
[2024-06-17 10:51] LABS: Influenza A QL RT-PCR Negative (Negative); Influenza B QL RT-PCR Negative (Negative); RSV RNA, RT-PCR Negative (Negative); SARS-CoV-2 RNA PCR Negative (Negative)
--- NOTE | 2024-06-17 12:46 | ED_ITS ---
HPI - General Adult General Chief complaint: Weakness Stated complaint: FATIGUE, ARM TINGLING, GENERAL DISCOMFORT Time Seen by Provider: 06/17/24 10:16 History of Present Illness HPI narrative: This is a 64-year-old male presenting ED with chief complaint of fatigue. Patient says he donated 2 units packed red blood cells 2 red cross 11 days ago. Since then he has had increased fatigue. He tried to work out which is normal for him earlier in the week but was too tired and developed a sharp twinge of chest pain that quickly resolved. Since then he has not going to the gym. He tried to run up his stairs to a time earlier today and became very winded and developed a twinge in his chest as well as tingling in his hands. Those symptoms have since resolved. He is currently asymptomatic. Patient has been aggressively trying to lose weight by exercising and limiting his daily caloric intake. He has lost 10 lb in 2 weeks. Related Data Home Medications ?Medication ?Instructions ?Recorded ?Confirmed ?Last Taken ?Type multivitamin 1 tablet PO DAILY 05/16/22 05/23/22 05/22/22 History Allergies Allergy/AdvReac Type Severity Reaction Status Date / Time cat dander Allergy Unknown Sneezing Verified 11/18/23 12:59 house dust Allergy Unknown Sneezing Verified 11/18/23 12:59 pollen extracts Allergy Unknown Sneezing Verified 11/18/23 12:59 PMFSH Past Medical History Medical History Seasonal allergies Tinnitus, bilateral Family history of colon cancer in mother Bone spur (~2007) Torn meniscus (~2009) Chronic bilateral low back pain without sciatica Surgical History Surgical History History of repair of right rotator cuff (~12/2006) Hx of arthroscopy of right knee (~2009) meniscus repair History of nasal septoplasty (~11/2015) Family History Family History Mother Cerebrovascular accident Carcinoma of colon Family history of lupus erythematosus Patient's mother is , Onset Age: 72 Social History Social History Smoking status: Never smoker Alcohol intake: current Drinks per week: 3 Alcohol use details: socially Substance use: never Substance use type: does not use Lack of Transportation: No Lack of Food: Never True Current Housing: I Have Housing Concerned About Future Housing: No Difficulty Paying Gas/Electric Bills: No Difficulty Paying for Meds: No Currently Unemployed: No Education: Decline to Answer Difficulty w/ Childcare or Family Care: No Living arrangements: with family Additional living arrangements comments: Occupation/Education: occupation Gender identity (if verbalized by the patient): Male Sexual Orientation (if Verbalized by the Patient): Straight or Heterosexual Spiritual care concerns: No Agree to blood products: Yes Exam 2 Narrative: APPEARANCE: No apparent distress. Head: atraumatic. EYES: EOMI, NOSE: Atraumatic NECK: Trachea midline RESPIRATORY: No increased rate of breathing clear to auscultation CARDIOVASCULAR: RRR, no peripheral edema ABDOMINAL: Non-distended soft nontender MUSCULOSKELETAl: No obvious deformities NEURO: Alert. Moving 4/4 extremities SKIN:: Warm, dry. Normal color PSYCHIATRIC: Normal affect Course Vital Signs Vital signs: Vital Signs Temperature 97.4 F L 06/17/24 09:43 Pulse Rate 75 06/17/24 09:43 Respiratory Rate 16 06/17/24 09:43 Blood Pressure 149/92 H 06/17/24 09:43 Pulse Oximetry 99 06/17/24 09:43 Temperature 97.6 F 06/17/24 09:51 Pulse Rate 64 06/17/24 12:49 Respiratory Rate 17 06/17/24 12:49 Blood Pressure 125/82 06/17/24 11:36 Pulse Oximetry 99 06/17/24 12:49 Oxygen Delivery Room Air 06/17/24 10:27 Medical Decision Making [facility] Narrative Medical decision making narrative: -Course: 64-year-old male presenting with 10 days of fatigue. Workup including laboratory studies, EKG, chest x-ray, troponin x2 and TSH were unremarkable. Patient has been resting comfortably bed with stable vital signs. Unclear etiology of his weakness although it is probably multifactorial from donating blood as well as having severely limited caloric intake with intense exercise. The patient's chest pain is atypical will be given referral to a merchandiser seasonal for further management. He has been cared follow-up with primary care physician and he can return to the ED if he develops any new or worsening symptoms. -DDX includes but is not limited to: ACS, anemia, decreased caloric intake, hypothyroid, infection -Co-morbidities complicating care: Anxiety -Independent interpretation of studies: Labs and imaging reviewed Independent EKG interpretation: Rhythm [sinus], Rate [68], [place] -[normal], [place] -[normal], QRS [narrow], QTC [normal], T waves -[negative for concerning inversions], ST Segments - [Negative for concerning elevations] Final interpretations: [Normal Sinus Rhythm] Vital Signs Vital Signs: Vital Signs Temperature 97.4 F L 06/17/24 09:43 Pulse Rate 75 06/17/24 09:43 Respiratory Rate 16 06/17/24 09:43 Blood Pressure 149/92 H 06/17/24 09:43 Pulse Oximetry 99 06/17/24 09:43 Temperature 97.6 F 06/17/24 09:51 Pulse Rate 64 06/17/24 12:49 Respiratory Rate 17 06/17/24 12:49 Blood Pressure 125/82 06/17/24 11:36 Pulse Oximetry 99 06/17/24 12:49 Oxygen Delivery Room Air 06/17/24 10:27 Lab Data 06/17/24 10:03 06/17/24 10:03 Labs: Lab Results 06/17/24 06/17/24 06/17/24 Range/Units 10:03 10:16 12:51 WBC 5.5 (4.5-10.0) K/mm3 RBC 4.82 (4.6-6.20) M/mm3 Hgb 14.0 (14.0-18.0) g/dL Hct 43.1 (42.0-52.0) % MCV 89.4 (80-100) fl MCH 29.0 (26-34) pg MCHC 32.5 (32-36) g/dl RDW 14.4 (11.5-14.5) % Plt Count 254 (150-375) k/mm3 MPV 8.5 (7.4-10.4) fl Immature Gran % (Auto) 0.2 (0-0.5) % Neut % (Auto) 65.1 (45.5-73.1) % Lymph % (Auto) 24.4 (18.3-44.2) % [place] % (Auto) 8.0 (2.6-8.5) % Eos % (Auto) 1.8 (0-4.4) % Baso % (Auto) 0.5 (0.2-1.2) % Lymph # (Auto) 1.34 (0.9-3.2) K/mm3 [place] # (Auto) 0.4 (0.1-0.6) K/mm3 Eos # (Auto) 0.1 (0-0.3) K/mm3 Baso # (Auto) 0.0 (0.0-0.1) K/mm3 Abs Immat Gran (auto) 0.01 (0.00-0.031) K/mm3 Absolute Neuts (auto) 3.6 (1.3-6.7) K/mm3 Absolute Nucleated RBC 0.000 (0.0-0.012) K/mm3 Nucleated RBC % 0.0 (0.0-0.2) % Sodium 141 (137-145) mmol/L Potassium 4.0 (3.4-5.0) mmol/L Chloride 107 (98-107) mmol/L Carbon Dioxide 27 (22-30) mmol/L Anion Gap 7 (4-12) mmol/L BUN 16 (9-20) mg/dL Creatinine 0.98 (0.7-1.3) mg/dL Estim Creat Clear Calc 74 ml/min Estimated GFR > 60 (59 - ) Glucose 102 (65-110) mg/dL Calcium 8.6 (8.4-10.2) mg/dL Total Bilirubin 0.7 (0.2-1.3) mg/dL AST 25 (17-59) U/L ALT 19 (6-50) U/L Alkaline Phosphatase 55 (38-126) U/L Troponin I < 0.012 < 0.012 (0.000-0.034) ng/mL Total Protein 7.0 (6.3-8.2) g/dL Albumin 4.2 (3.5-5.1) g/dL TSH (Reflex) 2.390 (0.465-4.68) uIU/mL Urine Color Yellow (Yellow) Urine Appearance Clear (Clear) Urine pH 6.0 (5.0-9.0) Ur Specific [place] 1.019 (1.001-1.035) Urine Protein Negative (Negative) mg/dL Urine Glucose (UA) Negative (Negative) mg/dL Urine Ketones Negative (Negative) mg/dL Ur Blood (Man) Negative (Negative) Urine Nitrate Negative (Negative) Urine Bilirubin Negative (Negative) Urine Urobilinogen 0.2 (<2.0) mg/dL Leukocyte Esterase Rfl Negative (Negative) ALLEN/UL Influenza A (RT-PCR) Negative (Negative) Influenza B (RT-PCR) Negative (Negative) RSV (RT-PCR) Negative (Negative) SARS-CoV-2 RNA (RT-PCR) Negative (Negative) Discharge Plan Discharge Clinical Impression: Fatigue Patient Disposition: Home Condition: Stable Instructions: Antibiotic Form, Fatigue (ED) Additional Instructions: Please follow-up with your primary care physician in 1 weekfor further management. Please follow-up with merchandiser seasonal in 1 week is listed below for further evaluation of her chest pain. You develop any new or worsening symptoms please return to the ED for re-evaluation. Patient Language: Estonian Prescriptions: No Action multivitamin [One A Day Vitamin] Tablet 1 tablet PO DAILY sildenafil [Viagra] 50 mg tablet 50 mg PO DAILY PRN (Reason: sexual activity) Qty: 30 0RF Rx Instructions: administer 30 minutes to 4 hours before activity alprazolam 0.25 mg tablet 0.25 mg PO QHS PRN (Reason: anxiety) Qty: 20 0RF Follow-up/Referrals: Dmitri Tom MD [Primary Care Provider] - 1 Week (fatigue) Yuko Hancock MD [Physician] - 1 Week (Chest pain) Quality HEART score for chest pain patients History: slightly suspicious ECG: normal Age: > or = to 65 years Risk factors: no risk factors known Troponin: < or = to 1x normal limit Heart score: 2
[2024-06-17 13:17] LABS: Troponin I < 0.012 ng/mL (0.000-0.034)
== END 2024-06-17 14:38 | disposition home or self-care (01) ==
PROVIDERS: Emergency Provider Emergency Medicine; PCP Family Medicine
DX: R53.83 Other fatigue (principal); Z20.822 Contact with and (suspected) exposure to COVID-19; F41.9 Anxiety disorder, unspecified; I45.10 Unspecified right bundle-branch block
CPT/HCPCS: 36415; 71046; 80053; 81003; 84443; 84484; 85025; 87637; 93005; 99284

== ENCOUNTER 2024-08-19 13:20 | Outpatient (CLI) | payer OTHER, SELFPAY ==
--- OUTSIDE RECORDS SUMMARY | 2024-08-19 13:23 | XMS_ITS | Clinical Summary ---
Author Organization [facility] Address [address] [facility] [place] [address] Care Team Providers Care Photo Tech Name Role Phone Kait Owusu MD Primary Care Provider [phone] Source Comments [facility],non-owned Affiliates and Associated Physician Practices is amultiple site organization consisting of ambulatory clinics and hospital sitesin [place], [place], [place] and [place]. This disclosure is being madepursuant to the Care Everywhere program and may not contain all information available regarding this patient. Last updated 17.[facility] Allergies No known active allergies Medications * Be aware that medications may not be up to date on this document. Alwaysverify current medications with the patient. No known medications Active Problems No known active problems Immunizations Immunization Administration Dates Next Due INFLUENZA VACCINE, QUADR. [...] Recorded Sex Assigned at Not on file Legal Sex Male 3:46 PM COMMERCIAL CLEANER Gender Identity Not on file Sexual Orientation Not on file Last Filed Vital Signs Vital Sign Reading Time Taken Comments Blood Pressure 127/88 03/14/2019 2:03 PM COMMERCIAL CLEANER Pulse 70 03/14/2019 2:03 PM COMMERCIAL CLEANER Temperature 37 C (98.6 F) 03/11/2019 4:45 PM COMMERCIAL CLEANER Respiratory Rate 16 03/11/2019 4:45 PM COMMERCIAL CLEANER Oxygen Saturation 95% 03/14/2019 2:03 PM COMMERCIAL CLEANER Inhaled Oxygen Concentration - - Weight 93 kg (205 lb) 03/14/2019 12:53 PM COMMERCIAL CLEANER Height 185.4 cm (6' 1) 03/14/2019 12:53 PM COMMERCIAL CLEANER Body Mass Index 27.05 03/14/2019 12:53 PM COMMERCIAL CLEANER Plan of Treatment Health Maintenance Due Date Last Done Comments COLOGUARD (AGES 45-75) - COL ON CA SCREENING 1958 COLON MONITORING 1958 COLONOSCOPY - COLON CA SCREENING 1958 CT COLONOGRAPHY - COLON CA SCREENING 1958 Colorectal Cancer Screening 1958 FIT - COLON CA SCREENING 1958 FLEX SIG - COLON CA SCREENING 1958 LIPID TESTING 1958 HEPATITIS C SCREENING 06/03/1976 DTAP/TDAP/TD VACCINES (1 [...] on patient's age to complete this topic Insurance [facility] T [address] T Care Teams Photo Tech Relationship Specialty Start Date End Date Kait Owusu MD [address] [place], [place] [id number] PCP - General 01/26/19
--- OUTSIDE RECORDS SUMMARY | 2024-08-19 13:23 | XMS_ITS | Continuity of Care Document ---
Author Organization [facility] Address [address] [facility] 150 [place] [address] Phone Care Team Providers Care Long Goods Drier Name Role Phone Galen Horvath MD Unavailable Unavailable Procedures Procedure Date Post-op Follow-up Visit Visual Field Examination(s) Advance Directives Directive Yes / No Effective Date File Name No Information Encounters Encounter Description Practice Location Reason(s) For Visit Diagnoses Date Provider Providers Copied on Encounter [facility], [address] [place] [address] [facility] [place], [place], [id number], tel:[phone] [facility] No Information 201 0 Alexandru Aaron. [facility]ly [facility], [facility] [place], [place], [id number], [place]. tel:[phone] [facility], [address] [place] [address] [address], [place], [place], [address], tel:[phone] [facility] No Information 200 8 Cort[address]quist[address]. [address] [place], [place] [address] 102[place], [address], [place]. tel:[phone] Referring Provider: Lyly Estrella, 2 [place], [address]. tel:[phone] Family History Family Member Type Diagnosis Age At Onset No Information Payers Payer name Insurance type Covered alliance party ID Authoriza tion(s) No Information Social [...]
--- OUTSIDE RECORDS SUMMARY | 2024-08-19 13:23 | XMS_ITS | Encounter Summary ---
Author Organization [facility] Address [address] [place] [place] [address] Care Team Providers Care General Maintenance Helper Name Role Phone Kait Owusu MD Primary Care Provider [phone] Encounter Details Date Type Department Care Team (Late st Contact Info) Description 02/15/2019 Lab Requisition 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erm[facility] Lab Received: 02/15/2019 08:04 AM Pathologist: Talia Medellin MD Specimen: Slide(s), Left upper abdomen, [id number]# [id number] 6:07 PM [facility] DERMATOPATHOLOGY LABORATORY Final Diagnosis Specimen A. 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 Compound melanocytic proliferation. All slides returned. Appointment. Date: 02/21/2019. Any additional sections, special stains or immunohistochemical stains performed by our laboratory will be kept here on file. 6:07 PM [facility] DERMATOPATHOLOGY LABORATORY Microscopic Description Specimen A. Slide(s), Left upper abdomen, OSC# [id number]: This is a compound nevus. There is [...] specimen. There is a perifollicular lymphohistiocytic infiltrate. 9 6:07 PM [facility] DERMATOPATHOLOGY LABORATORY Disclaimer An external and internal positive and negative controls are appropriate for the histochemical, immunohistochemical and immunofluorescence stain(s) in this case (if any), except where stated explicitly. The performance characteristics of the stain(s) cited in this report were developed and its performance characteristic determined by the Dermatopathology Laboratory at [facility], directed by Dr. Guilherme Medellin. These tests need not be, and therefore are not, approved by the [place] Food and Drug Administration. The tests are used for clinical purposes. Billing Codes Specimen Charges Stain Charges 30148 1 9 6:07 PM CUSTOM MOTORCYCLE PAINTER DERMATOPATHOLOGY LABORATORY Embedded Images 9 6:07 PM CUSTOM MOTORCYCLE PAINTER DERMATOPATHOLOGY LABORATORY Pathology/Cytolog y SLIDE / Unknown 02/15/2019 02/15/2019 8:04 AM CUSTOM MOTORCYCLE PAINTER Rina Elizondo MD LAB - PATHOLOGY/CYTOLOGY ORDER NAVIN Final Result DERMATOPATHOLOGY LABORATORY [facility] - Department of Dermatology [address] [place] [address], 5th [place] [address], [facility] [phone] documented in this encounter Visit Diagnoses Not on filedocumented in this encounter Care Teams General Maintenance Helper Relationship Specialty Start Date End Date Kait Owusu MD [address] [place] [address] PCP - General 01/26/19 documented as of this encounter
== END 2024-08-19 13:21 | disposition home or self-care (01) ==
LOC: ANHAUDASC 13:21
PROVIDERS: PCP Family Medicine; Visit Provider Otolaryngology
DX: H90.3 Sensorineural hearing loss, bilateral (principal); H93.13 Tinnitus, bilateral; J30.2 Other seasonal allergic rhinitis; K21.9 Gastro-esophageal reflux disease without esophagitis; Z82.2 Family history of deafness and hearing loss
CPT/HCPCS: 92557; 92567